=== PATIENT | female | born 1970 | race Caucasian/White ===

== ENCOUNTER 2020-04-15 15:30 | Emergency (ER) | payer MEDICAID ==
[~2020-04-15] VITALS: Ht 152.4 cm; Wt 90.7 kg
[~2020-04-15 15:30] MED LIST: ANTI-DEPRESSANT; LEVOTHYROXINE; [UNRECOGNIZED DRUG - REMARK]
[2020-04-15 15:39] VITALS: BP_SYST 112
[2020-04-15] MEDS ORDERED: KETOROLAC TROMETHAMINE 30 MG VIAL IM ONE (18:30)
[2020-04-15 18:42] VITALS: BP_SYST 114
== END 2020-04-15 18:42 | disposition home or self-care (01) ==
LOC: SED 15:30
DX: M79.601 Pain in right arm (principal); E03.9 Hypothyroidism, unspecified; Z88.1 Allergy status to other antibiotic agents
CPT/HCPCS: 93971; 96372; 99284; J1885

== ENCOUNTER 2022-10-02 14:07 | Emergency (ER) | payer MEDICAID ==
[~2022-10-02] VITALS: Ht 160 cm; Wt 81.6 kg
--- NOTE | 2022-10-02 14:40 | NUR ---
PT BIB SELF AWAKE AND ALERT AOX4. NO SOB OR DISTRESS. PT C/O SORE THROAT AND COUGH X8 DAYS. PT DENIES VOMITING, BUT NAESOUS. PT HAS HX OF HYPOTHYRODISM, DEPRESSION AND DIVERICUCOLISIS.
--- NOTE | 2022-10-02 14:44 | NUR ---
MD DR POSADAS AT BEDSIDE
[2022-10-02] MEDS ORDERED: ONDANSETRON HCL 4 MG/2 ML VIAL IVP ONE (14:45)
[2022-10-02] MEDS ORDERED: BENZONATATE 100 MG CAPSULE (TESSALON) PO ONE (14:45)
[2022-10-02] MEDS ORDERED: NACL 0.9% 1,000 ML IV ONE (14:45)
[2022-10-02] MEDS ORDERED: KETOROLAC TROMETHAMINE 30 MG VIAL IVP ONE (14:45)
--- NOTE | 2022-10-02 15:16 | NUR ---
Medicated per MD orders. IVF infusing with no s/s of infiltration at this time. Will cont to monitor
[2022-10-02 15:19] LABS: BASOPHILS % (AUTO) 0.4 % (0.0-2.0); HEMOGLOBIN 12.6 g/dL (12.0-16.0); LYMPHOCYTES # (AUTO) 2.6 K/uL (1.0-5.5); LYMPHOCYTES % (AUTO) 31.5 % (20.5-51.5); MEAN CORPUSCULAR HEMOGLOBIN 33 pg (27-31); MEAN CORPUSCULAR HGB CONC 34 % (32-36); MEAN CORPUSCULAR VOLUME 96 fL (79.0-98.0); MONOCYTES # (AUTO) 0.9 K/uL (0.0-1.0); MONOCYTES % (AUTO) 10.8 % (1.7-9.3); NEUTROPHILS # (AUTO) 4.7 K/uL (1.8-7.7); NEUTROPHILS % (AUTO) 57.3 % (40.0-70.0); PLATELET COUNT (AUTO) 335 K/uL (130-430); RED BLOOD CELL COUNT(AUTO) 3.85 MIL/uL (4.2-6.2); RED CELL DISTRIBUTION WIDTH 13.5 % (9.0-15.0); WHITE BLOOD COUNT (AUTO) 8.2 K/uL (4.8-10.8)
[2022-10-02 16:21] LABS: ANION GAP 9 (5-15); CALCIUM 9.4 mg/dL (8.4-11.0); CHLORIDE 102 mmol/L (98-107); CREATININE 0.76 mg/dL (0.55-1.30); GLUCOSE 85 mg/dL (70-99); UREA NITROGEN, BLOOD 11 mg/dL (8-21)
[2022-10-02 16:28] LABS: ASPARTATE AMINOTRANSFERASE 24 U/L (10-37); TOTAL BILIRUBIN 0.2 mg/dL (0.0-1.0)
[2022-10-02 16:29] LABS: GFR AFRICAN AMERICAN 102 mL/min (>90)
[2022-10-02 16:54] LABS: ALANINE AMINOTRANSFERASE 37 U/L (12-78)
[2022-10-02] MEDS ORDERED: ALBUTEROL SULFATE 0.083% 2.5 MG/3 ML VIAL.NEB INH ONE (17:30)
[2022-10-02] MEDS ORDERED: DIPHENHYDRAMINE INJ 50 MG/ML VIAL IVP ONE (18:15)
[2022-10-02] MEDS ORDERED: iohexoL 350 mgI/mL, 100 ML INFUS..BTL IV ONE (18:32)
--- NOTE | 2022-10-02 19:15 | NUR ---
REPORT GIVEN TO CHRISTINE WOODS. PT VSS
[2022-10-02] MEDS ORDERED: METHYLPREDNISOLONE SOD SUCC 40 MG/ML VIAL IVP ONE (20:15)
[2022-10-02 20:26] VITALS: BP_SYST 147
[2022-10-02] MEDS ORDERED: ALBMDI INH (20:26)
[2022-10-02] MEDS ORDERED: PRED20TA PO (20:26)
[2022-10-02] MEDS ORDERED: BENZ150C4 PO (20:26)
--- NOTE | 2022-10-02 20:27 | NUR ---
Patient given written and verbal discharge instructions and verbalizes understanding. ER MD discussed with patient the results and treatment provided. Patient in stable condition. ID arm band removed. IV catheter removed intact and dressing applied, no active bleeding. Rx of BEZONATE, PREDNISONE, ALBUTEROL given. Patient educated on pain management and to follow up with PMD. Pain Scale . Opportunity for questions provided and answered. Medication side effect fact sheet provided.
== END 2022-10-02 20:26 | disposition home or self-care (01) ==
LOC: SED 14:07
DX: J06.9 Acute upper respiratory infection, unspecified (principal); R06.02 Shortness of breath; R07.89 Other chest pain; R05.9 Cough, unspecified; Z88.1 Allergy status to other antibiotic agents; Z79.899 Other long term (current) drug therapy; Z20.822 Contact with and (suspected) exposure to COVID-19
CPT/HCPCS: 80053; 83880; 85025; 85379; 84484; 36415; 93005; 71045; 71275; 76376; 94640; 99285; 96361; 96374; 96375; 87804 ×2; 87426; Q9967; J1200; J1885; J1030; J2405; J7613

== ENCOUNTER 2023-03-13 08:09 | Emergency (ER) | payer MEDICAID ==
[~2023-03-13] VITALS: Ht 157.5 cm; Wt 81.6 kg
[~2023-03-13 08:09] MED LIST changes: +ALBMDI INH; +BENZ150C4 PO; +PRED20TA PO
[2023-03-13 08:14] VITALS: BP_SYST 155; PULSE 104; RESP 18; O2SAT 98
[2023-03-13] MEDS ORDERED: NACL 0.9% 1,000 ML IV ONE (08:30)
[2023-03-13 08:49] LABS: BASOPHILS % (AUTO) 0.4 % (0.0-2.0); EOSINOPHILS % (AUTO) 0.4 % (0.0-4.0); HEMATOCRIT 39.1 % (36-48); HEMOGLOBIN 13.2 g/dL (12.0-16.0); LYMPHOCYTES # (AUTO) 1.7 K/uL (1.0-5.5); MEAN CORPUSCULAR HEMOGLOBIN 33 pg (27-31); MEAN CORPUSCULAR HGB CONC 34 % (32-36); MEAN CORPUSCULAR VOLUME 97 fL (79.0-98.0); MONOCYTES # (AUTO) 0.2 K/uL (0.0-1.0); MONOCYTES % (AUTO) 2.6 % (1.7-9.3); NEUTROPHILS % (AUTO) 77.6 % (40.0-70.0); PLATELET COUNT (AUTO) 380 K/uL (130-430); RED BLOOD CELL COUNT(AUTO) 4.04 MIL/uL (4.2-6.2); RED CELL DISTRIBUTION WIDTH 12.2 % (9.0-15.0)
[2023-03-13 09:00] LABS: CALCIUM 8.4 mg/dL (8.4-11.0); CREATININE 0.87 mg/dL (0.55-1.30)
[2023-03-13 09:05] LABS: ALBUMIN 3.6 g/dL (3.4-4.8); TOTAL BILIRUBIN 0.3 mg/dL (0.0-1.0)
[2023-03-13] MEDS ORDERED: KETOROLAC TROMETHAMINE 30 MG VIAL IVP ONE (09:30)
[2023-03-13 09:41] LABS: BILIRUBIN,URINE NEGATIVE (NEGATIVE); BLOOD, URINE NEGATIVE (NEGATIVE); CLARITY/URINE CLEAR (CLEAR); GLUCOSE,URINE NEGATIVE (NEGATIVE); KETONES,URINE NEGATIVE (NEGATIVE); LEUKOCYTE ESTERASE ,URINE NEGATIVE (NEGATIVE); NITRITE, URINE NEGATIVE (NEGATIVE); PH,URINE 7.5 (5.0-8.0); PROTEIN URINE NEGATIVE (NEGATIVE); UROBILINOGEN,URINE 0.2 (0.2-1.0)
[2023-03-13 09:44] LABS: COLOR,URINE STRAW (YELLOW)
[2023-03-13 11:32] VITALS: BP_SYST 137; PULSE 84; RESP 18; TEMP 98.2; O2SAT 98
== END 2023-03-13 11:33 | disposition home or self-care (01) ==
LOC: SED 08:09
DX: B34.9 Viral infection, unspecified (principal); R20.2 Paresthesia of skin; E86.0 Dehydration; R42 Dizziness and giddiness; R19.7 Diarrhea, unspecified; R05.9 Cough, unspecified; Z88.1 Allergy status to other antibiotic agents; Z79.899 Other long term (current) drug therapy; Z20.822 Contact with and (suspected) exposure to COVID-19
CPT/HCPCS: 99285; 96374; 70450; 71045; 96361; 87426; 80053; 85025; 36415; 93005; 76376; 81003; 87804 ×2; J1885; J7030

== ENCOUNTER 2024-01-22 10:16 | Emergency (ER) | payer MEDICAID ==
[~2024-01-22] VITALS: Ht 152.4 cm; Wt 83.9 kg
[~2024-01-22 10:16] MED LIST changes: +BENZ150C10 PO; -BENZ150C4 PO
[2024-01-22 10:43] VITALS: BP_SYST 127; PULSE 88; RESP 16; TEMP 97; O2SAT 97
[2024-01-22] MEDS ORDERED: AMOX500C2 PO (11:04)
[2024-01-22] MEDS ORDERED: CORTEARS LEFT EAR (11:06)
[2024-01-22 11:20] VITALS: BP_SYST 127; PULSE 88; RESP 16; TEMP 97; O2SAT 97
== END 2024-01-22 11:20 | disposition home or self-care (01) ==
LOC: SED 10:16
DX: H60.92 Unspecified otitis externa, left ear (principal); H66.92 Otitis media, unspecified, left ear; J02.9 Acute pharyngitis, unspecified; Z88.1 Allergy status to other antibiotic agents
CPT/HCPCS: 99283